=== PATIENT | female | born 1960 | race Two or more races ===

== ENCOUNTER → 2019-05-30 | Outpatient (REF) | payer OTHER | LOC: M LAB LCGH 11:46 | PROVIDERS: ATTEND Surgery | DX: K35.80 Unspecified acute appendicitis (principal) ==

== ENCOUNTER → 2025-06-22 | Outpatient (CLI) | payer OTHER | LOC: M SOG 06:56 | PROVIDERS: ATTEND Neuromusculoskeletal Medicine, Sports Medicine | DX: M25.552 Pain in left hip (principal); M16.12 Unilateral primary osteoarthritis, left hip ==